=== PATIENT | male | born 1980 | race Two or more races ===

== ENCOUNTER 2019-10-29 10:10 | Emergency (ER) | payer OTHER ==
[~2019-10-29] VITALS: Ht 177.8 cm; Wt 95.0 kg
[2019-10-29 10:31] VITALS: BP 130/78
--- NOTE | 2019-10-29 10:31 | PHYS DOC ---
General Adult EDM: Chief Complaint: Palpitations HPI: HPI: Patient is a 39-year-old otherwise healthy male with some anxiety who states he has had 8 years worth of palpitations or he describes them as skipped beats. He has seen multiple providers in the past who have told him there is not much to do about it. He is gone a long stretch of time without any and then had some more this morning. Currently he is asymptomatic. He has not taken any stimulants or any other drugs. [] Review of Systems: Review of Systems: Constitutional: Denies fever or chills. [] Eyes: Denies change in visual acuity. [] HENT: Denies nasal congestion or sore throat. [] Respiratory: Denies cough or shortness of breath. [] Cardiovascular: Palpitations. [] GI: Denies abdominal pain, nausea, vomiting, bloody stools or diarrhea. [] : Denies dysuria. [] Musculoskeletal: Denies back pain or joint pain. [] Integument: Denies rash. [] Neurologic: Denies headache, focal weakness or sensory changes. [] Endocrine: Denies polyuria or polydipsia. [] Lymphatic: Denies swollen glands. [] Psychiatric: Reports anxiety. [] Heart Score: Risk Factors: Risk Factors: DM, Current or recent (<one month) smoker, HTN, HLP, family history of CAD, obesity. Risk Scores: Score 0 - 3: 2.5% MACE over next 6 weeks - Discharge Home Score 4 - 6: 20.3% MACE over next 6 weeks - Admit for Clinical Observation Score 7 - 10: 72.7% MACE over next 6 weeks - Early Invasive Strategies Physical Exam: PE: Constitutional: Well developed, well nourished, no acute distress, non-toxic appearance. [] HENT: Normocephalic, atraumatic, bilateral external ears normal, oropharynx moist, no oral exudates, nose normal. [] Eyes: PERRLA, EOMI, conjunctiva normal, no discharge. [] Neck: Normal range of motion, no tenderness, supple, no stridor. [] Cardiovascular:Heart rate regular rhythm, no murmur [] Lungs & Thorax: Bilateral breath sounds clear to auscultation [] Abdomen: Bowel sounds normal, soft, no tenderness, no masses, no pulsatile masses. [] Skin: Warm, dry, no erythema, no rash. [] Back: No tenderness, no CVA tenderness. [] Extremities: No tenderness, no cyanosis, no clubbing, ROM intact, no edema. [] Neurologic: Alert and oriented X 3, normal motor function, normal sensory function, no focal deficits noted. [] Psychologic: Anxious. [] EKG: EKG: [] Radiology/Procedures: Radiology/Procedures: [] Course & Med Decision Making: Course & Med Decision Making Pertinent Labs and Imaging studies reviewed. (See chart for details) [] Dragon Disclaimer: Dragon Disclaimer: This electronic medical record was generated, in whole or in part, using a voice recognition dictation system. Departure Departure Impression: Primary Impression: Palpitations Additional Impression: Anxiety about health Disposition: 01 HOME, SELF-CARE Condition: STABLE Patient Instructions: Palpitations Additional Instructions: As we discussed, follow with a book jacket cover machine operator at [place] early in the week. Return to the emergency department with any new or concerning symptoms TALIA YU DO October 29, 2019 10:31
--- NOTE | 2019-10-31 07:14 | EKG ---
[facility] [address] [place] [address] Test Date: 2019-10-29 Test Time: 10:19:21 Pat Name: KYRA ARMENTA Department: Room: Gender: M [employer]ator: : 1980 Requested By: TALIA YU Order Number: [id number] Reading MD: Italo Sage Measurements Intervals [place] Rate: 68 P: 40 UT: 138 QRS: 42 QRSD: 94 T: 38 QT: 372 QTc: 400 Interpretive Statements SINUS RHYTHM Electronically Signed On 10-31-2019 7:50:39 CDT by Italo Sage
== END 2019-10-29 10:40 | disposition home or self-care (01) ==
LOC: ER 10:10
DX: F41.9 Anxiety disorder, unspecified (principal); R00.2 Palpitations
CPT/HCPCS: 93005; 99283